=== PATIENT | female | born 1960 | race African-American/Black ===

== ENCOUNTER 2018-07-15 00:55 | Inpatient (IN) | payer SELFPAY ==
--- NOTE | 2018-07-15 02:44 | HP ---
COWS - Scale Resting Pulse: 0= OR 80 or Below Sweatin=Flushed/Facial Moisture Restless Observation: 0= Sits Still Pupil Size: 1= Pupils >than Normal Bone or Joint Aches: 4=Acute Joint/Muscle Pain Runny Nose/ Eye Tearin= Runny Nose/Eyes GI Upset > 30mins: 2= Nausea/Diarrhea (diarrhea x 2) Tremor Observation: 2= Slight Tremor Visible Yawning Observation: 1= 1-2x During Session Anxiety or Irritability: 2=Irritable/Anxious Goose Flesh Skin: 3=Piloerection COWS Score: 19 CIWA Score - Admission Criteria [facility]ASAS Guidelines: Admission for Medically Managed Detox: Requires at least one of the followin. CIWA greater than 12 2. Seizures within the past 24 hours 3. Delirium tremens within the past 24 hours 4. Hallucinations within the past 24 hours 5. Acute intervention needed for co occurring medical disorder 6. Acute intervention needed for co occurring psychiatric disorder 7. Severe withdrawal that cannot be handled at a lower level of care (continued vomiting, continued diarrhea, abnormal vital signs) requiring intravenous medication and/or fluids 8. Admission [facility] Chief Complaint: Heroin withdrawal symptoms Allergies/Adverse Reactions: Allergies Allergy/AdvReac Type Severity Reaction Status Date / Time No Known Allergies Allergy Verified 07/15/18 02:39 History of Present Illness: 57 years old female with a long history of heroin dependence is seeking admission to detox. Patient has been in previous detox at [facility] and reports 31/2 years of sobriety while in intermediate. She has medical history of Hep C, Hep. B, depression and anxiety. She denies suicide attempt and suicidal ideation at this time. Exam Limitations: No Limitations - Ebola screening Have you traveled outside of the country in the last 21 days: No Have you had contact with anyone from an Ebola affected area: No Have you been sick,other than usual withdrawal symptoms: No Do you have a fever: No - Review of Systems Constitutional: Chills, Loss of Appetite, Malaise, Changes in sleep EENT: reports: Sinus Pressure Respiratory: reports: No Symptoms reported Cardiac: reports: No Symptoms Reported GI: reports: No Symptoms Reported, Blood Streaked Bowels, Poor Fluid Intake : reports: No Symptoms Reported Musculoskeletal: reports: Back Pain, Muscle Pain Integumentary: reports: Flushing, Sweating Neuro: reports: Headache, Tremors Endocrine: reports: No Symptoms Reported Hematology: reports: No Symptoms Reported Psychiatric: reports: Anxious, Depressed Other Systems: Reviewed and Negative Patient History - Patient Medical History Hx Anemia: No Hx Asthma: No Hx Chronic Obstructive Pulmonary Disease (COPD): No Hx Cancer: No Hx Cardiac Disorders: No Hx Congestive Heart Failure: No Hx Hypertension: No Hx Hypercholesterolemia: No Hx Pacemaker: No HX Cerebrovascular Accident: No Hx Seizures: No Hx Dementia: No Hx Diabetes: No Hx Gastrointestinal Disorders: No Hx Liver Disease: No Hx Genitourinary Disorders: No Hx Sexually Transmitted Disorders: No Hx Renal Disease (ESRD): No Hx Thyroid Disease: No Hx Human Immunodeficiency Virus (HIV): No (Negative 2018) Hx Hepatitis C: Yes (Not on treatment) Hx Depression: No Hx Suicide Attempt: No (DENIES SUICIDAL IDEATION ) Hx Bipolar Disorder: Yes Hx Schizophrenia: No - PPD History Previous Implant?: No Implanted On Prior [facility] Admission?: No PPD to be Administered?: Yes - Reproductive History Patient is a Female of Child Bearing Age (11 -55 yrs old): No LMP comment: MENOPAUSAL - Smoking Cessation Smoking history: Current every day smoker Have you smoked in the past 12 months: Yes Aproximately how many cigarettes per day: 8 Hx Chewing Tobacco Use: No Initiated information on smoking cessation: Yes 'Breaking Loose' booklet given: 07/15/18 - Substance & Tx. History Hx Alcohol Use: No Hx Substance Use: Yes Substance Use Type: Cocaine, Heroin, Marijuana, Opiates Hx Substance Use Treatment: Yes - Substances abused Heroin Substance route: Inhalation Frequency: Daily Amount used: 7 bags Age of first use: 30 Date of last use: 07/08/18 Cocaine Frequency: Daily Amount used: 8 BAGS Age of first use: 16 Date of last use: 07/14/18 Family Disease History - Family Disease History Family History: Denies Admission Physical Exam S - Physical General Appearance: Yes: Tremorous, Anxious HEENTM: Yes: EOMI, Normal ENT Inspection, Normal Voice, SKYLAR, Nasal Congestion Respiratory: Yes: Lungs Clear, Normal Breath Sounds, No Respiratory Distress Neck: Yes: Supple Breast: Yes: Breast Exam Deferred Cardiology: Yes: Regular Rhythm, Regular Rate Abdominal: Yes: Normal Bowel Sounds Genitourinary: Yes: Within Normal Limits Back: Yes: Normal Inspection Musculoskeletal: Yes: Back pain Extremities: Yes: Tremors Neurological: Yes: Fully Oriented, Normal Mood/Affect Integumentary: Yes: Warm - Diagnostic (1) Opioid dependence with withdrawal Current Visit: Yes Status: Chronic (2) Hep C w/o coma, chronic Current Visit: Yes Status: Chronic (3) Hep B w/o coma Current Visit: Yes Status: Chronic (4) Depression Current Visit: Yes Status: Chronic (5) Anxiety Current Visit: Yes Status: Acute Cleared for Admission [facility] - Detox or Rehab [facility] Level of Care: Medically Managed Detox Regimen/Protocol: Methadone Vital Signs - Vital Signs Vital signs refused: No Temperature: 98.1 F Pulse Rate: 62 Respiratory Rate: 16 Blood Pressure: 102/56 - Height Height: 5 ft 6 in - Weight Weight: 160 lb Weight measurement method: Standing scale - BMI Body Mass Index (BMI): 25.8 - Bowel Function Bowel Movement: No POC Urine test - Test device test lot number: [id number] Expiration date: 11/19/19 - Control test control: Yes - Result Urine Test Results: Negative - NO line present Urine Drug Screen - Test Device Lot number: [id number] Expiration date: 02/18/20 - Control Is test valid?: Yes - Results Drug screen NEGATIVE: No Urine drug screen results: THC-Marijuana, OCTAVIO-Cocaine, FEN-Fentanyl, MOP-Opiates , MTD-Methadone Inpatient Rehab Admission - Rehab Decision to Admit Inpatient rehab admission?: No
[2018-07-15] MEDS ORDERED: BISMUTH SUBSALICYLATE 524 MG/30 ML UD PO PRN (02:54)
[2018-07-15] MEDS ORDERED: MELATONIN 5 MG TABLETS PO PRN (02:54)
[2018-07-15] MEDS ORDERED: ACETAMINOPHEN 325 MG TABLET (FP) PO PRN ×2 (02:54)
[2018-07-15] MEDS ORDERED: MAGNESIUM HYDROX 2400MG/30ML ORAL SUSPENSION 30 ML CUP PO PRN (02:54)
[2018-07-15] MEDS ORDERED: IBUPROFEN 400 MG TABLET (FP) PO PRN (02:54)
[2018-07-15] MEDS ORDERED: MENTHOL/PHENOL 1 EACH UD MM PRN (02:54)
[2018-07-15] MEDS ORDERED: cloNIDine HCL 0.1 MG TABLET PO PRN (02:54)
[2018-07-15] MEDS ORDERED: MAG HYDROX/AL HYDROX/SIMETH 30 ML UNIT-DOSE CUP PO PRN (02:54)
[2018-07-15] MEDS ORDERED: METHOCARBAMOL 500 MG TABLET PO PRN (02:54)
[2018-07-15] MEDS ORDERED: NICOTINE POLACRILEX 2 MG GUM BUC PRN (02:54)
[2018-07-15] MEDS ORDERED: MAGNESIUM CITRATE 300 ML BOTTLE PO PRN (02:54)
[2018-07-15 03:04] VITALS: BMI 25.8
[2018-07-15] MEDS ORDERED: METHADONE HCL 10 MG TABLET (FOR DETOX USE ONLY) PO ONE ×3 (03:32→23:00)
[2018-07-15] MEDS: hydrOXYzine PAMOATE 25 MG CAPSULE (FP) PO PRN ×2 (10:10→22:16)
[2018-07-15] MEDS: PRENATAL VITAMINS W/ FOLIC ACID TABLET (FP) PO SCH (10:10)
[2018-07-15] MEDS ORDERED: PNEUMOC 13-VAL CONJ-DIP CRM/PF 0.5 ML DISP.SYRIN IM ONE (12:00)
[2018-07-15] MEDS ORDERED: FLU VACCINE QUAD 60 MCG/0.5 ML (MDV 18-19) IM ONE (12:00)
--- NOTE | 2018-07-15 15:19 | EKG ---
Test Reason : Blood Pressure : / mmHG Vent. Rate : 052 BPM Atrial Rate : 052 BPM P-R Int : 148 ms QRS Dur : 086 ms QT Int : 424 ms P-R-T Axes : 066 073 046 degrees QTc Int : 394 ms SINUS BRADYCARDIA OTHERWISE NORMAL ECG NO PREVIOUS ECGS AVAILABLE Confirmed by RACHEL BUTTERFIELD MD ([id number]) on 07/15/2018 3:18:46 PM Referred By: OXANA BHANDARI Confirmed By:RACHEL BUTTERFIELD MD
[2018-07-15] MEDS ORDERED: PNEUMOCOCCAL 23 VACCINE 0.5 ML VIAL IM ONE (16:00)
--- NOTE | 2018-07-15 16:14 | PN ---
BHS COWS - Scale Resting Pulse: 0= [place] 80 or Below Sweatin= Chills/Flushing Restless Observation: 0= Sits Still Pupil Size: 0= Normal to Room Light Bone or Joint Aches: 0= None Runny Nose/ Eye Tearin= Nasal Congestion GI Upset > 30mins: 0= None Tremor Observation of Outstretched Hands: 2= Slight Tremor Visible Yawning Observation: 1= 1-2x During Session Anxiety or Irritability: 2=Irritable/Anxious Goose Flesh Skin: 3=Piloerection COWS Score: 10 BHS Progress Note (SOAP) Subjective: Sweating, anxious, Tremors, fatigue. Objective: PATIENT A & O X 3, OBSERVED AMBULATING ON UNIT UNASSISTED. IN NO ACUTE DISTRESS. 07/15/18 16:13 Vital Signs Temperature 96.1 F L 07/15/18 14:18 Pulse Rate 68 07/15/18 14:18 Respiratory Rate 18 07/15/18 14:18 Blood Pressure 100/72 07/15/18 14:18 O2 Sat by Pulse Oximetry (%) ADMISSION LAB RESULTS PENDING. 07/15/18 16:14 Assessment: 07/15/18 16:14 WITHDRAWAL SYMPTOMS. Plan: CONTINUE DETOX.
[2018-07-15] MEDS: THIAMINE HCL 100 MG TABLET (FP) PO SCH (22:14)
[2018-07-16] MEDS ORDERED: METHADONE HCL 10 MG TABLET (FOR DETOX USE ONLY) PO ONE (10:00)
[2018-07-16] MEDS: PRENATAL VITAMINS W/ FOLIC ACID TABLET (FP) PO SCH (10:39)
[2018-07-16] MEDS: hydrOXYzine PAMOATE 25 MG CAPSULE (FP) PO PRN ×2 (10:41→22:02)
[2018-07-16 10:49] LABS: HEMATOCRIT 36.2 % (32.4-45.2); HEMOGLOBIN 12.1 GM/dL (10.7-15.3); MCH 31.2 pg (25.7-33.7); MCHC 33.4 g/dl (32.0-36.0); MEAN CELL VOLUME 93.5 fl (80-96); MEAN PLT VOLUME 9.4 fl (7.5-11.1); PLATELET COUNT 355 K/MM3 (134-434); RBC 3.88 M/mm3 (3.60-5.2); RDW 15.5 % (11.6-15.6)
[2018-07-16 10:57] LABS: ALBUMIN 2.9 g/dl (3.4-5.0); ALK PHOS 58 U/L (45-117); ANION GAP 4 MMOL/L (8-16); BILIRUBIN,TOTAL 0.2 mg/dL (0.2-1); BLOOD UREA NITROGEN 7 mg/dL (7-18); CALCIUM 9.2 mg/dL (8.5-10.1); CHLORIDE 103 mmol/L (98-107); CO2 32 mmol/L (21-32); CREATININE 0.8 mg/dL (0.55-1.3); GLUCOSE,RANDOM 80 mg/dL (74-106); POTASSIUM 4.3 mmol/L (3.5-5.1); SGOT/AST 30 U/L (15-37); SGPT/ALT 37 U/L (13-61); SODIUM 139 mmol/L (136-145); TOT PROT 6.2 g/dl (6.4-8.2)
[2018-07-16] MEDS ORDERED: PNEUMOCOCCAL 23 VACCINE 0.5 ML VIAL IM ONE ×2 (12:00→14:35)
--- NOTE | 2018-07-16 13:27 | PN ---
BHS COWS - Scale Resting Pulse: 0= [place] 80 or Below Sweatin= Chills/Flushing Restless Observation: 0= Sits Still Pupil Size: 1= Pupils >than Normal Bone or Joint Aches: 1= Mild Discomfort Runny Nose/ Eye Tearin= Nasal Congestion GI Upset > 30mins: 1= Stomach Cramp Tremor Observation of Outstretched Hands: 1= Tremor [place], Not Seen Yawning Observation: 1= 1-2x During Session Anxiety or Irritability: 1=Feels Anxious/Irritable Goose Flesh Skin: 0=Smooth Skin COWS Score: 8 [facility] Progress Note (SOAP) Subjective: report both lower extremities swell x 2-3 weeks encourage elevation of both legs and begin hctz 12.5 mg po daily Objective: 07/16/18 13:26 Vital Signs Temperature 97.5 F L 07/16/18 10:41 Pulse Rate 61 07/16/18 10:41 Respiratory Rate 18 07/16/18 10:41 Blood Pressure 152/76 07/16/18 10:41 O2 Sat by Pulse Oximetry (%) Laboratory Last Values WBC 7.0 K/mm3 (4.0-10.0) 07/16/18 07:00 RBC 3.88 M/mm3 (3.60-5.2) 07/16/18 07:00 Hgb 12.1 GM/dL (10.7-15.3) 07/16/18 07:00 Hct 36.2 % (32.4-45.2) 07/16/18 07:00 MCV 93.5 fl (80-96) 07/16/18 07:00 MCH 31.2 pg (25.7-33.7) 07/16/18 07:00 MCHC 33.4 g/dl (32.0-36.0) 07/16/18 07:00 RDW 15.5 % (11.6-15.6) 07/16/18 07:00 Plt Count 355 K/MM3 (134-434) 07/16/18 07:00 MPV 9.4 fl (7.5-11.1) 07/16/18 07:00 Sodium 139 mmol/L (136-145) 07/16/18 07:00 Potassium 4.3 mmol/L (3.5-5.1) 07/16/18 07:00 Chloride 103 mmol/L (98-107) 07/16/18 07:00 Carbon Dioxide 32 mmol/L (21-32) 07/16/18 07:00 Anion Gap 4 MMOL/L (8-16) L 07/16/18 07:00 BUN 7 mg/dL (7-18) 07/16/18 07:00 Creatinine 0.8 mg/dL (0.55-1.3) 07/16/18 07:00 Creat Clearance w eGFR 74.47 (>60) 07/16/18 07:00 Random Glucose 80 mg/dL (74-106) 07/16/18 07:00 Calcium 9.2 mg/dL (8.5-10.1) 07/16/18 07:00 Total Bilirubin 0.2 mg/dL (0.2-1) 07/16/18 07:00 AST 30 U/L (15-37) 07/16/18 07:00 ALT 37 U/L (13-61) 07/16/18 07:00 Alkaline Phosphatase 58 U/L (45-117) 07/16/18 07:00 Total Protein 6.2 g/dl (6.4-8.2) L 07/16/18 07:00 Albumin 2.9 g/dl (3.4-5.0) L 07/16/18 07:00 RPR Titer Nonreactive (NONREACTIVE) 07/16/18 07:00 HIV 1&2 Antibody Screen Negative 07/16/18 07:00 HIV P24 Antigen Negative 07/16/18 07:00 lab noted Assessment: 07/16/18 13:27 opiate withdrawal sx Plan: continue detox
[2018-07-16] MEDS: HYDROCHLOROTHIAZIDE 12.5 MG CAPSULE (FP) PO SCH (13:55)
[2018-07-16] MEDS ORDERED: PNEUMOC 13-VAL CONJ-DIP CRM/PF 0.5 ML DISP.SYRIN IM ONE (15:00)
[2018-07-16] MEDS: THIAMINE HCL 100 MG TABLET (FP) PO SCH (22:02)
[2018-07-17] MEDS ORDERED: METHADONE HCL 10 MG TABLET (FOR DETOX USE ONLY) PO ONE (10:00)
[2018-07-17] MEDS: HYDROCHLOROTHIAZIDE 12.5 MG CAPSULE (FP) PO SCH (10:21)
[2018-07-17] MEDS: PRENATAL VITAMINS W/ FOLIC ACID TABLET (FP) PO SCH (10:21)
[2018-07-17] MEDS: hydrOXYzine PAMOATE 25 MG CAPSULE (FP) PO PRN ×2 (10:23→22:07)
[2018-07-17] MEDS: NICOTINE 21 MG/24 HOURS TOPICAL PATCH TD SCH (11:11)
--- NOTE | 2018-07-17 12:00 | PN ---
BHS COWS - Scale Resting Pulse: 0= [place] 80 or Below Sweatin= Chills/Flushing Restless Observation: 1= Difficult to Sit Still Pupil Size: 0= Normal to Room Light Bone or Joint Aches: 1= Mild Discomfort Runny Nose/ Eye Tearin= Nasal Congestion GI Upset > 30mins: 1= Stomach Cramp Tremor Observation of Outstretched Hands: 1= Tremor [place], Not Seen Yawning Observation: 0= None Anxiety or Irritability: 1=Feels Anxious/Irritable Goose Flesh Skin: 0=Smooth Skin COWS Score: 7 [facility] Progress Note (SOAP) Subjective: doing well with methadone regimen received nicotine patch 21 mg feeling much better today Objective: 07/17/18 12:01 Vital Signs Temperature 97.6 F 07/17/18 09:07 Pulse Rate 60 07/17/18 09:07 Respiratory Rate 18 07/17/18 09:07 Blood Pressure 108/65 07/17/18 09:07 O2 Sat by Pulse Oximetry (%) Laboratory Last Values WBC 7.0 K/mm3 (4.0-10.0) 07/16/18 07:00 RBC 3.88 M/mm3 (3.60-5.2) 07/16/18 07:00 Hgb 12.1 GM/dL (10.7-15.3) 07/16/18 07:00 Hct 36.2 % (32.4-45.2) 07/16/18 07:00 MCV 93.5 fl (80-96) 07/16/18 07:00 MCH 31.2 pg (25.7-33.7) 07/16/18 07:00 MCHC 33.4 g/dl (32.0-36.0) 07/16/18 07:00 RDW 15.5 % (11.6-15.6) 07/16/18 07:00 Plt Count 355 K/MM3 (134-434) 07/16/18 07:00 MPV 9.4 fl (7.5-11.1) 07/16/18 07:00 Sodium 139 mmol/L (136-145) 07/16/18 07:00 Potassium 4.3 mmol/L (3.5-5.1) 07/16/18 07:00 Chloride 103 mmol/L (98-107) 07/16/18 07:00 Carbon Dioxide 32 mmol/L (21-32) 07/16/18 07:00 Anion Gap 4 MMOL/L (8-16) L 07/16/18 07:00 BUN 7 mg/dL (7-18) 07/16/18 07:00 Creatinine 0.8 mg/dL (0.55-1.3) 07/16/18 07:00 Creat Clearance w eGFR 74.47 (>60) 07/16/18 07:00 Random Glucose 80 mg/dL (74-106) 07/16/18 07:00 Calcium 9.2 mg/dL (8.5-10.1) 07/16/18 07:00 Total Bilirubin 0.2 mg/dL (0.2-1) 07/16/18 07:00 AST 30 U/L (15-37) 07/16/18 07:00 ALT 37 U/L (13-61) 07/16/18 07:00 Alkaline Phosphatase 58 U/L (45-117) 07/16/18 07:00 Total Protein 6.2 g/dl (6.4-8.2) L 07/16/18 07:00 Albumin 2.9 g/dl (3.4-5.0) L 07/16/18 07:00 RPR Titer Nonreactive (NONREACTIVE) 07/16/18 07:00 HIV 1&2 Antibody Screen Negative 07/16/18 07:00 HIV P24 Antigen Negative 07/16/18 07:00 lab noted Assessment: 07/17/18 12:01 withdrawal sx Plan: continue detox
[2018-07-17] MEDS: THIAMINE HCL 100 MG TABLET (FP) PO SCH (22:07)
[2018-07-18] MEDS ORDERED: METHADONE HCL 10 MG TABLET (FOR DETOX USE ONLY) PO ONE (10:00)
[2018-07-18] MEDS: NICOTINE 21 MG/24 HOURS TOPICAL PATCH TD SCH (10:23)
[2018-07-18] MEDS: HYDROCHLOROTHIAZIDE 12.5 MG CAPSULE (FP) PO SCH (10:25)
[2018-07-18] MEDS: PRENATAL VITAMINS W/ FOLIC ACID TABLET (FP) PO SCH (10:25)
[2018-07-18] MEDS: hydrOXYzine PAMOATE 25 MG CAPSULE (FP) PO PRN ×2 (11:55→22:07)
[2018-07-18] MEDS ORDERED: FLU VACCINE QUAD 60 MCG/0.5 ML (MDV 18-19) IM ONE (12:00)
--- NOTE | 2018-07-18 13:49 | PN ---
BHS COWS - Scale Resting Pulse: 1= [place] 81-100 Sweatin= Chills/Flushing Restless Observation: 0= Sits Still Pupil Size: 0= Normal to Room Light Bone or Joint Aches: 1= Mild Discomfort Runny Nose/ Eye Tearin= Nasal Congestion GI Upset > 30mins: 1= Stomach Cramp Tremor Observation of Outstretched Hands: 0= None Yawning Observation: 0= None Anxiety or Irritability: 0= None Goose Flesh Skin: 0=Smooth Skin COWS Score: 5 B[facility] Progress Note (SOAP) Subjective: feeling better today more energy discuss aftercare with staff Objective: 07/18/18 13:50 Vital Signs Temperature 98.3 F 07/18/18 13:39 Pulse Rate 85 07/18/18 13:39 Respiratory Rate 18 07/18/18 13:39 Blood Pressure 112/77 07/18/18 13:39 O2 Sat by Pulse Oximetry (%) Laboratory Last Values WBC 7.0 K/mm3 (4.0-10.0) 07/16/18 07:00 RBC 3.88 M/mm3 (3.60-5.2) 07/16/18 07:00 Hgb 12.1 GM/dL (10.7-15.3) 07/16/18 07:00 Hct 36.2 % (32.4-45.2) 07/16/18 07:00 MCV 93.5 fl (80-96) 07/16/18 07:00 MCH 31.2 pg (25.7-33.7) 07/16/18 07:00 MCHC 33.4 g/dl (32.0-36.0) 07/16/18 07:00 RDW 15.5 % (11.6-15.6) 07/16/18 07:00 Plt Count 355 K/MM3 (134-434) 07/16/18 07:00 MPV 9.4 fl (7.5-11.1) 07/16/18 07:00 Sodium 139 mmol/L (136-145) 07/16/18 07:00 Potassium 4.3 mmol/L (3.5-5.1) 07/16/18 07:00 Chloride 103 mmol/L (98-107) 07/16/18 07:00 Carbon Dioxide 32 mmol/L (21-32) 07/16/18 07:00 Anion Gap 4 MMOL/L (8-16) L 07/16/18 07:00 BUN 7 mg/dL (7-18) 07/16/18 07:00 Creatinine 0.8 mg/dL (0.55-1.3) 07/16/18 07:00 Creat Clearance w eGFR 74.47 (>60) 07/16/18 07:00 Random Glucose 80 mg/dL (74-106) 07/16/18 07:00 Calcium 9.2 mg/dL (8.5-10.1) 07/16/18 07:00 Total Bilirubin 0.2 mg/dL (0.2-1) 07/16/18 07:00 AST 30 U/L (15-37) 07/16/18 07:00 ALT 37 U/L (13-61) 07/16/18 07:00 Alkaline Phosphatase 58 U/L (45-117) 07/16/18 07:00 Total Protein 6.2 g/dl (6.4-8.2) L 07/16/18 07:00 Albumin 2.9 g/dl (3.4-5.0) L 07/16/18 07:00 RPR Titer Nonreactive (NONREACTIVE) 07/16/18 07:00 HIV 1&2 Antibody Screen Negative 07/16/18 07:00 HIV P24 Antigen Negative 07/16/18 07:00 lab noted Assessment: 07/18/18 13:50 opiate withdrawal sx Plan: continue detox
[2018-07-18] MEDS: THIAMINE HCL 100 MG TABLET (FP) PO SCH (22:07)
[2018-07-19] MEDS ORDERED: METHADONE HCL 5 MG TABLET (FOR DETOX USE ONLY) PO ONE (06:00)
[2018-07-19 06:39] VITALS: BP 131/89; PULSE 77; TEMP 96.8
--- NOTE | 2018-07-19 11:04 | DS ---
[facility] Detox Discharge Summary Admission Date: 07/15/18 Discharge Date: 07/19/18 - History Present History: Opioid Dependence Additional Comments: 57 years old female admitted on 07/15/18 for opiate withdrawal stabilization completed detox regimen aftercare community self support group Pertinent Past History: bring in medication list and lab report to follow up appointment - Physical Exam Results Vital Signs: Vital Signs Temperature 96.8 F L 07/19/18 06:39 Pulse Rate 77 07/19/18 06:39 Respiratory Rate 18 07/19/18 06:39 Blood Pressure 131/89 07/19/18 06:39 O2 Sat by Pulse Oximetry (%) Pertinent Admission Physical Exam Findings: opiate withdrawal sx patient left around 0700 am today board writer has not assessed nor evaluated the patient prior to discharge Laboratory Last Values WBC 7.0 K/mm3 (4.0-10.0) 07/16/18 07:00 RBC 3.88 M/mm3 (3.60-5.2) 07/16/18 07:00 Hgb 12.1 GM/dL (10.7-15.3) 07/16/18 07:00 Hct 36.2 % (32.4-45.2) 07/16/18 07:00 MCV 93.5 fl (80-96) 07/16/18 07:00 MCH 31.2 pg (25.7-33.7) 07/16/18 07:00 MCHC 33.4 g/dl (32.0-36.0) 07/16/18 07:00 RDW 15.5 % (11.6-15.6) 07/16/18 07:00 Plt Count 355 K/MM3 (134-434) 07/16/18 07:00 MPV 9.4 fl (7.5-11.1) 07/16/18 07:00 Sodium 139 mmol/L (136-145) 07/16/18 07:00 Potassium 4.3 mmol/L (3.5-5.1) 07/16/18 07:00 Chloride 103 mmol/L (98-107) 07/16/18 07:00 Carbon Dioxide 32 mmol/L (21-32) 07/16/18 07:00 Anion Gap 4 MMOL/L (8-16) L 07/16/18 07:00 BUN 7 mg/dL (7-18) 07/16/18 07:00 Creatinine 0.8 mg/dL (0.55-1.3) 07/16/18 07:00 Creat Clearance w eGFR 74.47 (>60) 07/16/18 07:00 Random Glucose 80 mg/dL (74-106) 07/16/18 07:00 Calcium 9.2 mg/dL (8.5-10.1) 07/16/18 07:00 Total Bilirubin 0.2 mg/dL (0.2-1) 07/16/18 07:00 AST 30 U/L (15-37) 07/16/18 07:00 ALT 37 U/L (13-61) 07/16/18 07:00 Alkaline Phosphatase 58 U/L (45-117) 07/16/18 07:00 Total Protein 6.2 g/dl (6.4-8.2) L 07/16/18 07:00 Albumin 2.9 g/dl (3.4-5.0) L 07/16/18 07:00 RPR Titer Nonreactive (NONREACTIVE) 07/16/18 07:00 HIV 1&2 Antibody Screen Negative 07/16/18 07:00 HIV P24 Antigen Negative 07/16/18 07:00 lab noted - Treatment Hospital Course: Detox Protocol Followed, Detoxed Safely, Responded well, Discharged Condition Good, Rehab Referral Accepted Patient has Accepted a Rehab Referral to: community self help - Medication Discharge Medications: Ambulatory Orders NK [No Known Home Medication] 07/15/18 - Diagnosis (1) Hep B w/o coma Status: Chronic (2) Hep C w/o coma, chronic Status: Chronic (3) Opioid dependence with withdrawal Status: Acute - AMA Did Patient Leave Against Medical Advice: No
== END 2018-07-19 07:11 | disposition home or self-care (01) | DRG 773 ==
LOC: YASAS 00:55 → Y3N 03:08
PROVIDERS: ADMIT Surgery; ATTEND Surgery
PROC: HZ2ZZZZ Detoxification Services for Substance Abuse Treatment (ICD-10-PCS; principal; 2018-07-15)
DX: F11.23 Opioid dependence with withdrawal (principal); F32.9 Major depressive disorder, single episode, unspecified; F41.8 Other specified anxiety disorders; B19.10 Unspecified viral hepatitis B without hepatic coma; B19.20 Unspecified viral hepatitis C without hepatic coma; R60.0 Localized edema
CPT/HCPCS: 36415; 80053; 85027; 86593; 87389; 90670; 90688; 93005; 93010; G0008; G0009